=== PATIENT | female | born 1965 | race Caucasian/White ===

== ENCOUNTER → 2017-04-14 10:52 | Outpatient (CLI) | payer OTHER, SELFPAY ==
--- NOTE | 2017-04-13 | IMM_PTH ---
PATIENT: RUPA RODRIGUEZ LOC: [facility] U#:[id number] AGE/SX: 59/F ROOM: RE04/14/[address]: Dr. Jessica Cleveland MD : 1965 BED: DIS: SPEC #: [id number] RECD: 04/17/17 11:46 STATUS: FARIBA CAIT #: [id number] EDDIE: 04/13/17 00:[address]: Jessica Cleveland DEPT: IMMUNOHISTOCHEMISTRY RECD BY: Kristal Smart Tissues: Right breast, NOS Procedures: CK5-6 (add) CK8 (add) E-CAD (add) HER2 EFRAÍN (add) KI-67 (add) P53 (add) IN (add) ER (initial) PHYSICIAN & INSTITUTION [place] [id number] SPECIMEN INFORMATION: Tissue Source: Right breast core biopsy Clinical Info: Abnormal mammogram Specimen Number: [id number] CPT code: 19902, 29889 x4, 33203 x3 METHODOLOGY: Deparaffinized sections of prefer/formalin-fixed tissue or PAP/DQ stained slides are incubated with monoclonal/polyclonal antibodies/oligonucleotide probes. Localization is made via biotin free immunoperoxidase method. Appropriate controls are performed and reacted as expected. Results on target cell population are indicated in the following table: RESULTS: ANTIBODY / CLONE RESULT E-Cad (ECH-6) positive CK8 (53dnadT90) positive CK5-6 (D5 & 1684) negative Ki-67 (30-9) positive, low to moderate P53 (DO-7) negative MORPHOMETRIC ANALYSIS ER (clone 6F11) >95%, moderate IN (clone 16/1E2) 12%, moderate Her-2Neu (clone CB11) 1+ The prognostic test for HER2 is performed on formalin-fixed paraffin embedded tissue. A 3+ (positive) staining pattern is defined as intense, homogeneous, complete, circumferential membranous staining in >10% of contiguous tumor cells. A similar weak (2+) staining pattern is interpreted as equivocal. EDDIE follow-up testing is recommended for all equivocal cases. Positivity/negativity for ER/IN is reported if > or < 1% of the tumor cells are immuno- reactive, respectively. The ASCO/CAP criteria is used for scoring. Reference: Journal of Clinical Oncology, 2013; 31:1265-6279 & 2010; 16:9545-3936. Duration of fixation: 28 Hrs; Sample Adequate: Yes. These assays have not been validated on decalcified tissues. Results should be interpreted with caution given the likelihood of false negativity on decalcified specimens. These tests were developed and their performance characteristics determined by [facility]. They may not have been cleared or approved by the U.[place]. Food and Drug Administration. The FDA has determined that such clearance or approval is not necessary. INTERPRETATION: Right breast, ultrasound-guided needle core biopsy: Invasive ductal carcinoma, nuclear grade 2. Positive for estrogen receptors (favorable prognostic indicator). Positive for progesterone receptors (favorable prognostic indicator). Negative for overexpression of FDQ3muu. SJ:sasha 04/18/17
--- NOTE | 2017-04-13 15:15 | BRBX_PTH ---
PATIENT: RUPA RODRIGUEZ LOC: [facility] U#:[id number] AGE/SX: 59/F ROOM: RE04/14/[address]: Dr. Jessica Cleveland MD : 1965 BED: DIS: SPEC #: [id number] RECD: 04/14/17 13:50 STATUS: FARIBA CAIT #: [id number] EDDIE: 04/13/17 15:[address]: Jessica Cleveland DEPT: SURGICAL PATHOLOGY RECD BY: Jesús Gates Tissues: Right breast, NOS Procedures: Surgery Specimen Level IV HEADER OPERATION: Ultrasound-guided right needle core breast biopsy PRE-OP DIAGNOSIS: Abnormal mammogram TISSUE SUBMITTED: Right breast needle core biopsy ISCHEMIC TIME: 2 minutes FIXATION TIME: 28 hours MICROSCOPIC DIAGNOSIS Right breast, ultrasound-guided needle core biopsy: Invasive ductal carcinoma, nuclear grade 2 (1 cm in greatest length). SJ:sasha 04/17/17 COMMENT Immunohistochemistry ([id number]) supports the above diagnosis. ER/AL/Xyf8jjh studies are being performed on sections of tumor and the results from this study will be reported separately ([id number]). Case has been reviewed in consultation with Dr. Zambrano who concurs with the above diagnosis. IDC:AM MICROSCOPIC DESCRIPTION Slides are reviewed. GROSS DESCRIPTION Received in fixative is one container labeled with the patient's name and designated right breast biopsy. The specimen consists of multiple elongated fragments of cowan-yellow fibroadipose tissue that in aggregate measure 2.5 x 0.5 x 0.1 cm. The entire specimen is submitted in one cassette. / DEACON:sasha 04/14/17 TC:0 CPT: 09450 ADDENDUM ADDENDUM ADDENDUM ADDENDUM ADDENDUM ADDENDUM ADDENDUM ADDENDUM ADDENDUM 05/04/2017 10:59 ADDENDUM 05/04/2017 10:59 ADDENDUM 05/04/2017 10:59 ADDENDUM 05/04/2017 10:59 ADDENDUM 05/04/2017 10:59 This addendum is added to incorporate an outside pathology consultation report. The case was examined at [facility] (#[id number]) and the following diagnosis was rendered. Breast, right core biopsies: Invasive moderately differentiated ductal carcinoma. Please see complete above mentioned consultation report in EMR
== END ==
PROVIDERS: Visit Provider Surgery
DX: R92.8 Other abnormal and inconclusive findings on diagnostic imaging of breast (principal)
CPT/HCPCS: 88305; 88341; 88342

== ENCOUNTER 2018-07-19 14:30 | Emergency (ER) | payer OTHER, SELFPAY ==
[2018-07-19 14:31] VITALS: BP 169/93; PULSE 84; RESP 16; TEMP 36.9; O2SAT 99; BMI 31.1
--- NOTE | 2018-07-19 15:29 | ED.VISSUMM ---
- ER Visit Summary Date of Service: 07/19/18 Chief Complaint: Right leg pain History of Present Illness: The patient is a 53 F who presents with concern for DVT. She had her veins in both legs lasered/injected and finished that procedure in March. She noted redness and pain the proximal right calf 3 days ago. She is on tamoxifen and was told to watch for clots. Physical Examination: Blood pressure is 169/93, otherwise unremarkable. Patient sitting upright in bed no acute distress. Right lower extremity examination was erythema with superficial palpable cord on the proximal medial right calf. She has strong distal pulses. Test Results: Venous ultrasound reveals no evidence of DVT. Emergency Department Course and Treatment: Test results were discussed with the patient. I believe she has superficial femoral phlebitis. She is to use aspirin and warm compresses. Treatment Plan: [] Disposition: Discharge Impression: Superficial thrombophlebitis This note was generated with [employer] dictation software. It may contain incorrect words, spelling, and punctuation that were not noted in review of the chart prior to signing ED Disposition - Plan for ED Patient: Disposition: Home or Assisted Living Instructions: ED Phlebitis Superficial Referrals: Gina Avery DO [Primary Care Provider] - 1 Week if not improving
[2018-07-19 15:39] VITALS: BP 147/83; PULSE 87; RESP 16; O2SAT 99
== END 2018-07-19 15:40 | disposition home or self-care (01) ==
PROVIDERS: Emergency Provider Emergency Medicine
DX: I80.11 Phlebitis and thrombophlebitis of right femoral vein (principal); I10 Essential (primary) hypertension; Z85.3 Personal history of malignant neoplasm of breast; Z87.891 Personal history of nicotine dependence
CPT/HCPCS: 93971; 99282